=== PATIENT | female | born 1960 | race Two or more races ===

== ENCOUNTER 2022-07-02 05:28 | Day surgery (SDC) | payer OTHER ==
[~2022-07-02 05:28] MED LIST: FLEXIRIL PO; SINGULAIR10 MG PO; TOPROL XL50 M1 PO; ZYRTEC10 M3 PO
== END 2022-07-02 13:15 | disposition home or self-care (01) ==
LOC: CIR.AMB 05:28
PROVIDERS: ATTEND Obstetrics & Gynecology
DX: C54.1 Malignant neoplasm of endometrium (principal); Z20.822 Contact with and (suspected) exposure to COVID-19; Z88.6 Allergy status to analgesic agent; Z88.2 Allergy status to sulfonamides; I10 Essential (primary) hypertension; I34.1 Nonrheumatic mitral (valve) prolapse; G43.909 Migraine, unspecified, not intractable, without status migrainosus

== ENCOUNTER 2022-10-08 08:15 | Inpatient (IN) | payer OTHER ==
[~2022-10-08] VITALS: Ht 167.6 cm; Wt 100.7 kg
[2022-10-20] MEDS ORDERED: NORVASC2.5 M1 PO (10:48)
[2022-10-20] MEDS ORDERED: FIORICET (10:48)
[2022-10-20] MEDS ORDERED: ULTRAN (10:50)
== END 2022-10-23 12:15 | disposition home or self-care (01) | DRG 741 ==
LOC: O/R 10-22 07:00 → OB/GYN 10-22 08:15
PROVIDERS: ADMIT Obstetrics & Gynecology Gynecologic Oncology; ATTEND Obstetrics & Gynecology Gynecologic Oncology
PROC: 0UT74ZZ Resection of Bilateral Fallopian Tubes, Percutaneous Endoscopic Approach (ICD-10-PCS; 2022-10-22)
PROC: 0UT24ZZ Resection of Bilateral Ovaries, Percutaneous Endoscopic Approach (ICD-10-PCS; 2022-10-22)
PROC: 07BC4ZZ Excision of Pelvis Lymphatic, Percutaneous Endoscopic Approach (ICD-10-PCS; 2022-10-22)
PROC: 0UT94ZZ Resection of Uterus, Percutaneous Endoscopic Approach (ICD-10-PCS; principal; 2022-10-22 17:15)
DX: C54.1 Malignant neoplasm of endometrium (principal); N84.0 Polyp of corpus uteri; D25.1 Intramural leiomyoma of uterus; D25.2 Subserosal leiomyoma of uterus; Z20.822 Contact with and (suspected) exposure to COVID-19